=== PATIENT | female | born 1945 | race Asian ===

== ENCOUNTER 2018-11-14 21:46 | Emergency (ER) | payer MEDICARE, OTHER ==
--- NOTE | 2018-11-14 23:03 | ER Document Report ---
HPI - HPI Patient complains to provider of: Elevated blood pressure reading Time Seen by Provider: 11/14/18 22:53 Onset: This evening Onset/Duration: Sudden Pain Level: Denies Context: Patient states that she checks her blood pressure at least twice a day. Patient's blood pressure was normal this morning and was elevated this evening. Patient states that she continue to recheck it after noticing that it was elevated in the 160s over 90 range and her blood pressure got as high as 190/99. Patient states that she took herself off of her amlodipine 2 weeks ago as her blood pressure has been running low. Patient has not spoke to her doctor about stopping her medication. Patient denies any headache chest pain abdominal pain, back pain vision problems or urinary symptoms. Patient states she did get anxious when she noticed that her blood pressure was elevated this evening. Associated Symptoms: None Exacerbated by: Denies Relieved by: Denies Similar symptoms previously: Yes Recently seen / treated by doctor: No - ROS ROS below otherwise negative: Yes Systems Reviewed and Negative: Yes All other systems reviewed and negative - CONSTITUTIONAL Constitutional: DENIES: Fever - NEURO Neurology: DENIES: Headache, Weakness, Vision blurred, Dizzinesss / Vertigo - CARDIOVASCULAR Cardiovascular: DENIES: Chest pain - RESPIRATORY Respiratory: DENIES: Trouble Breathing, Coughing - GASTROINTESTINAL Gastrointestinal: DENIES: Abdominal Pain, Nausea - MUSCULOSKELETAL Musculoskeletal: DENIES: Back Pain - DERM Skin Color: Normal Skin Problems: None Past Medical History - General Information source: Patient - Social History Smoking Status: Never Smoker Frequency of alcohol use: None Drug Abuse: None Occupation: None Family History: CVA, Hyperlipidemia, Hypertension - Past Medical History Cardiac Medical History: Reports: Hx Hypercholesterolemia, Hx Hypertension Neurological Medical History: Reports: Hx Cerebrovascular Accident - x2, TIA GI Medical History: Reports: Hx Gastroesophageal Reflux Disease Past Surgical History: Reports: Hx Pacemaker - Immunizations Immunizations up to date: Yes Hx Diphtheria, Pertussis, Tetanus Vaccination: Yes Hx Pneumococcal Vaccination: 04/09/11 Vertical Provider Document - CONSTITUTIONAL Agree With Documented VS: Yes Exam Limitations: No Limitations General Appearance: WD/WN, No Apparent Distress - INFECTION CONTROL TRAVEL OUTSIDE OF THE [place] IN LAST 30 DAYS: No - HEENT HEENT: Atraumatic, Normocephalic - NECK Neck: Normal Inspection, Supple - RESPIRATORY Respiratory: Breath Sounds Normal, No Respiratory Distress - CARDIOVASCULAR Cardiovascular: Regular Rate, Regular Rhythm - BACK Back: Normal Inspection - MUSCULOSKELETAL/EXTREMETIES Musculoskeletal/Extremeties: ISSAC ELMORE - NEURO Level of Consciousness: Awake, Alert, Appropriate Motor/Sensory: No Motor Deficit - DERM Integumentary: Warm, Dry, No Rash Course - Re-evaluation Re-evalutation: 11/14/18 23:02 Patient had an elevated blood pressure reading at home which made her anxious. Patient took herself off of her blood pressure medication 2 weeks ago without her doctor's knowledge. Patient denies any headache chest pain back pain abdominal pain or urinary symptoms. Patient with normal blood pressure reading while here in the emergency department. Patient encouraged to continue to monitor her blood pressure and follow-up with her primary doctor tomorrow for recheck. - Vital Signs Vital signs: Temp Pulse Resp BP Pulse Ox 97.8 F 63 18 142/75 H 96 11/14/18 21:56 11/14/18 21:56 11/14/18 21:56 11/14/18 21:56 11/14/18 21:56 Discharge - Discharge Clinical Impression: Concern about blood pressure Hypertension Qualifiers: Hypertension type: unspecified Qualified Code(s): I10 - Essential (primary) hypertension Condition: Stable Disposition: HOME, SELF-CARE Additional Instructions: Return immediately for any new or worsening symptoms Followup with your primary care provider, call tomorrow to make a followup appointment Continue to monitor and keep a log of your blood pressure readings. Discussed with your doctor whether or not you should be on your blood pressure medication as they are not aware that you stop taking your medication. Referrals: ELMIRA DESHPANDE MD [Primary Care Provider] - Follow up tomorrow
[2018-11-14 23:17] VITALS: BP 131/75
== END 2018-11-14 23:11 | disposition home or self-care (01) ==
LOC: ER 21:46
DX: I10 Essential (primary) hypertension (principal); F41.9 Anxiety disorder, unspecified; Z79.899 Other long term (current) drug therapy
CPT/HCPCS: 99283

== ENCOUNTER 2020-02-17 17:35 | Emergency (ER) | payer MEDICARE, OTHER ==
--- NOTE | 2020-02-17 17:49 | ER Document Report ---
ED Medical Screen (RME) - General Chief Complaint: S/S of Possible Stroke Stated Complaint: POSSIBLE STROKE Time Seen by Provider: 02/17/20 17:39 Primary Care Provider: ELMIRA DESHPANDE MD [Primary Care Provider] - Follow up as needed TRAVEL OUTSIDE OF THE [place] IN LAST 30 DAYS: No - HPI Notes: 02/17/20 17:44 74-year-old female with a history of 3 CVAs presents to the emergency room with left hand numbness and weakness that started 2 days ago. She states this is typically what happens as a precursor to her strokes. Patient is anticoagulated on Plavix and did have a pacemaker placed last year. Denies any chest pain shortness of breath, fevers or chills. Patient states she her left hand felt "hard" and she kept smacking her hand against the chair because she did not have any sensation. Denies any falls, hitting her head and change in level consciousness. Patient follows with a PCP Dr. Deshpande in [place] as well as Dr. Benites, neurologist at [facility]. I have greeted and performed a rapid initial assessment of this patient. A comprehensive ED assessment and evaluation of the patient, analysis of test results and completion of the medical decision making process will be conducted by additional ED providers. PHYSICAL EXAMINATION: GENERAL: Well-appearing, well-nourished and in no acute distress. HEAD: Atraumatic, normocephalic. EYES: Pupils equal round extraocular movements intact, conjunctiva are normal. NECK: Normal range of motion CV: s1, s2 regular LUNGS: No respiratory distress Musculoskeletal: Normal range of motion NEUROLOGICAL: Normal speech, normal gait. PERRLA, EOMI. Full motor and sensory function throughout. Weaving Supervisor + 2 equal bilaterally in BUE. Tongue midline. No pronator drift. No ataxia. Neck with APROM. Raises eyebrows, right higher than left eyebrow. strength is 5 out of 5 in bilateral upper. Speaks in full sentences. No weakness on one side. SKIN: Warm, Dry, normal turgor, no rashes or lesions noted. - Related Data Allergies/Adverse Reactions: No Known Allergies Allergy (Verified 02/03/13 22:48) Past Medical History - Past Medical History Cardiac Medical History: Reports: Hx Hypercholesterolemia, Hx Hypertension Neurological Medical History: Reports: Hx Cerebrovascular Accident - x2, TIA GI Medical History: Reports: Hx Gastroesophageal Reflux Disease Past Surgical History: Reports: Hx Pacemaker - Immunizations Immunizations up to date: Yes Hx Diphtheria, Pertussis, Tetanus Vaccination: Yes Doctor's Discharge - Discharge Referrals: ELMIRA DESHPANDE MD [Primary Care Provider] - Follow up as needed
--- NOTE | 2020-02-17 18:21 | RADIOLOGY REPORT (SQ) ---
EXAM DESCRIPTION: CT HEAD WITHOUT IMAGES COMPLETED DATE/TIME: 02/17/2020 4:57 pm REASON FOR STUDY: L arm numbness, hx of CVA COMPARISON: 09/09/2014 TECHNIQUE: Axial images acquired through the brain without intravenous contrast. Images reviewed wi th bone, brain and subdural windows. Additional sagittal and coronal reconstructions were generated. Images stored on PACS. All CT scanners at this facility use dose modulation, iterative reconstruction, and/or weight based d osing when appropriate to reduce radiation dose to as low as reasonably achievable (ALARA). [facility]: Dose Right [facility]: CareDose [facility]: Dose Right [facility]: Teradose 4D [facility]: [employer] RADIATION DOSE: CT Rad equipment meets quality standard of care and radiation dose reduction techniq ues were employed. CTDIvol: 53.2 mGy. DLP: 964 mGy-cm. mGy. LIMITATIONS: None. FINDINGS: VENTRICLES: Normal size and contour. CEREBRUM: No masses. No hemorrhage. No midline shift. No evidence for acute infarction. There is n ormal calzada-white matter differentiation. Moderate periventricular and deep white matter hypodense at tenuation consistent with moderate chronic small vessel ischemic change. There is intracranial ather osclerosis. CEREBELLUM: No masses. No hemorrhage. No alteration of density. No evidence for acute infarction. EXTRAAXIAL SPACES: No fluid collections. No masses. ORBITS AND GLOBE: No intra- or extraconal masses. Normal contour of globe without masses. CALVARIUM: No fracture. PARANASAL SINUSES: No fluid or mucosal thickening. SOFT TISSUES: No mass or hematoma. OTHER: No other significant finding. IMPRESSION: No acute intracranial hemorrhage, mass, or evidence of acute territorial infarct. Moder ate chronic small vessel ischemic change. EVIDENCE OF ACUTE STROKE: NO. COMMENT: Quality ID # [id number]: Final reports with documentation of one or more dose reduction techniques (e.g., Automated exposure control, adjustment of the mA and/or kV according to patient size, use of iterative reconstruction technique) TECHNICAL DOCUMENTATION: JOB ID: [id number] [employer]- All Rights Reserved Reading location - IP/workstation name: [email or web address]
--- NOTE | 2020-02-17 18:23 | RADIOLOGY REPORT (SQ) ---
EXAM DESCRIPTION: CHEST SINGLE VIEW IMAGES COMPLETED DATE/TIME: 02/17/2020 4:58 pm REASON FOR STUDY: L arm numbness, hx of CVA COMPARISON: None. EXAM PARAMETERS: NUMBER OF VIEWS: One view. TECHNIQUE: Single frontal radiographic view of the chest acquired. RADIATION DOSE: NA LIMITATIONS: None. FINDINGS: LUNGS AND PLEURA: No opacities, masses or pneumothorax. No pleural effusion. MEDIASTINUM AND HILAR STRUCTURES: No masses. Contour normal. HEART AND VASCULAR STRUCTURES: Heart normal in size. Normal vasculature. BONES: No acute findings. HARDWARE: None in the chest. OTHER: No other significant finding. IMPRESSION: NO ACUTE RADIOGRAPHIC FINDING IN THE CHEST. TECHNICAL DOCUMENTATION: JOB ID: [id number] 2010 [employer]- All Rights Reserved Reading location - IP/workstation name: [email or web address]
[2020-02-17 18:41] LABS: ABSOLUTE EOSINOPHILS # (AUTO) 0.1 10^3/uL (0.0-0.6); ABSOLUTE LYMPHOCYTES (AUTO) 2.2 10^3/uL (0.5-4.7); ABSOLUTE MONOCYTES (AUTO) 0.6 10^3/uL (0.1-1.4); ABSOLUTE NEUT (AUTO) 2.3 10^3/uL (1.7-8.2); BASOPHILS % (AUTO) 0.7 % (0-2); EOSINOPHILS % (AUTO) 1.1 % (0-6); HEMATOCRIT 41.9 % (36.0-47.0); HEMOGLOBIN 14.4 g/dL (12.0-15.5); MEAN CORPUSCULAR HEMOGLOBIN 31.1 pg (27.0-33.4); MEAN CORPUSCULAR HGB CONC 34.4 g/dL (32.0-36.0); MEAN CORPUSCULAR VOLUME 90 fl (80-97); MONOCYTES % (AUTO) 10.7 % (3-13); PLATELET COUNT 169 10^3/uL (150-450); RED BLOOD COUNT 4.64 10^6/uL (3.72-5.28); RED CELL DISTRIBUTION WIDTH 12.9 % (11.5-14.0); SEGMENTED NEUTROPHILS % (AUTO) 44.5 % (42-78); TOTAL CELLS COUNTED % (AUTO) 100 %; WHITE BLOOD COUNT 5.2 10^3/uL (4.0-10.5)
[2020-02-17 18:50] LABS: INTERNATIONAL RATION (INR) 0.98; PROTHROMBIN TIME 13.2 SEC (11.4-15.4)
[2020-02-17 18:57] LABS: ALBUMIN 4.9 g/dL (3.5-5.0); ALKALINE PHOSPHATASE 62 U/L (38-126); ANION GAP 11 (5-19); ASPARTATE AMINO TRANSFERASE 65 U/L (14-36); BILIRUBIN,TOTAL 0.8 mg/dL (0.2-1.3); BLOOD UREA NITROGEN 14 mg/dL (7-20); CALCIUM 9.8 mg/dL (8.4-10.2); CARBON DIOXIDE 27 mmol/L (22-30); CHLORIDE 101 mmol/L (98-107); GLUCOSE 116 mg/dL (75-110); POTASSIUM 3.7 mmol/L (3.6-5.0); TOTAL PROTEIN 8.1 g/dL (6.3-8.2)
--- NOTE | 2020-02-17 20:24 | ER Document Report ---
ED General - General Chief Complaint: S/S of Possible Stroke Stated Complaint: POSSIBLE STROKE Time Seen by Provider: 02/17/20 17:39 Primary Care Provider: ELMIRA DESHPANDE MD [Primary Care Provider] - Follow up as needed TRAVEL OUTSIDE OF THE [place] IN LAST 30 DAYS: No - HPI Notes: Patient is a 74-year-old female with a history of multiple CVAs, affecting her left side with no residual deficits, who presents to the emergency department for evaluation of numbness and tingling in her left hand. Initially she said it had only been lasting a few days, but on further questioning she states this actually been going on for about a month. It started hurting over the last 2 days. She primarily complained of pain in her index finger. She states tapping her finger against something made it better. She describes it as an ache, really cannot give a numerical value to her discomfort. She denies any difficulty seeing, speaking, swallowing. Otherwise she is moving her arms and legs without difficulty. She has been taking her medications as prescribed. She follows with a neurologist, is actually due to see him for her annual appointment shortly. - Related Data Allergies/Adverse Reactions: No Known Allergies Allergy (Verified 02/17/20 19:41) Home Medications: plavix, diltiazem, atorvastatin Past Medical History - General Information source: Patient - Social History Smoking Status: Never Smoker Frequency of alcohol use: None Drug Abuse: None Family History: CVA, Hyperlipidemia, Hypertension - Past Medical History Cardiac Medical History: Reports: Hx Hypercholesterolemia, Other - Pacemaker Neurological Medical History: Reports: Hx Cerebrovascular Accident - x2, TIA GI Medical History: Reports: Hx Gastroesophageal Reflux Disease Past Surgical History: Reports: Hx Orthopedic Surgery - Left shoulder, Hx Pacemaker - Immunizations Immunizations up to date: Yes Hx Diphtheria, Pertussis, Tetanus Vaccination: Yes Hx Pneumococcal Vaccination: 04/09/11 Review of Systems - Review of Systems Constitutional: No symptoms reported EENT: No symptoms reported Cardiovascular: No symptoms reported Respiratory: No symptoms reported Gastrointestinal: No symptoms reported Genitourinary: No symptoms reported Musculoskeletal: No symptoms reported Skin: No symptoms reported Neurological/Psychological: See HPI -: Yes All other systems reviewed and negative Physical Exam - Vital signs Vitals: Pulse Resp BP Pulse Ox 70 19 126/86 H 97 02/17/20 19:29 02/17/20 19:29 02/17/20 19:29 02/17/20 19:29 - Notes Notes: Vital signs reviewed, please refer to chart. Head is normocephalic, atraumatic. Pupils equal round, reactive to light. Neck is supple without meningismus. Heart is regular rate and rhythm. Lungs are clear to auscultation bilaterally. Abdomen is soft, nontender, normoactive bowel sounds throughout. Extremities without cyanosis, clubbing. Posterior calves are nontender. Peripheral pulses are equal. Skin is warm and dry. Patient is awake, alert, oriented x3. Cranial nerves II - XII are grossly intact without focal neurological deficits. Strength is plus 5 out of 5 bilateral upper and lower extremities. Sensation is intact to the right upper and bilateral lower extremities. Reflexes reveal mild hyperreflexia in the left upper extremity at the biceps and brachioradialis. Intact [id number], rapid alternating movements, [id number]. Examination of the left lower extremity yields diminished sensation and paresthesias associated with light touch to the index, middle, and ring fingers. There is also diminished sensation and paresthesias over the dorsum of the hand and the anterior space between the thumb and the index finger. She has mildly diminished extension strength at the wrist. Course - Re-evaluation Re-evalutation: 02/17/20 20:23 Patient presents to the emergency department for evaluation. She states that she is concerned she is having a CVA, given the numbness and tingling in her left fingers. She states that she has had strokes that affected her left upper extremity in the past. On exam she is in fact hyperreflexive, but her neurological findings otherwise are more suggestive of a lower motor neuron lesion. She has no other neurological deficits. Her work-up here is absolutely unremarkable. Even if this were a very small stroke, I do not see how management would be changed by a more acute diagnosis. She is already on Plavix. She already has follow-up with neurology. She states that she is never discussed this with her neurologist in the past. Certainly her neurologist could order EMG, MRI of the cervical spine, other work-up to evaluate for the possible etiology of this sensation. She is told that if she develops worsening she needs to return, otherwise she is discharged with close follow-up. - Vital Signs Vital signs: Temp Pulse Resp BP Pulse Ox 70 19 126/86 H 97 02/17/20 19:29 02/17/20 19:29 02/17/20 19:29 02/17/20 19:29 - Laboratory Result Diagrams: 02/17/20 18:30 02/17/20 18:30 Laboratory results interpreted by me: 02/17/20 18:30 Glucose 116 H AST 65 H ALT 103 H - Diagnostic Test Radiology reviewed: Reports reviewed Radiology results interpreted by me: 02/17/20 20:24 Chest X-Ray 02/17/20 17:39 IMPRESSION: NO ACUTE RADIOGRAPHIC FINDING IN THE CHEST. Head CT 02/17/20 17:39 IMPRESSION: No acute intracranial hemorrhage, mass, or evidence of acute territorial infarct. Moderate chronic small vessel ischemic change. EVIDENCE OF ACUTE STROKE: NO. - EKG Interpretation by Me Additional EKG results interpreted by me: 02/17/20 20:25 Atrial paced at 70 bpm. Normal axis and intervals. No acute ST changes concerning for ischemia or infarction. No old studies immediately available for comparison. Discharge - Discharge Clinical Impression: Paresthesia and pain of left extremity Condition: Stable Disposition: HOME, SELF-CARE Instructions: Numbness or Paresthesia ([facility]) Additional Instructions: There are multiple possible causes for the numbness and tingling that you are experiencing today. Your work-up here today shows no signs of an acute stroke. Please discuss this numbness with your neurologist in follow-up. Return to the emergency department with worsening or new concerning symptoms of any sort. Referrals: ELMIRA DESHPANDE MD [Primary Care Provider] - Follow up as needed
[2020-02-17 20:43] LABS: APPEARANCE,URINE CLEAR; BILIRUBIN,URINE NEGATIVE (NEGATIVE); COLOR,URINE YELLOW; GLUCOSE, URINE NEGATIVE (NEGATIVE); KETONES,URINE NEGATIVE (NEGATIVE); LEUKOCYTE ESTERASE,URINE NEGATIVE (NEGATIVE); NITRITE,URINE NEGATIVE (NEGATIVE); PROTEIN,URINE NEGATIVE (NEGATIVE); URINE SPECIFIC GRAVITY 1.008; UROBILINOGEN,URINE NEGATIVE mg/dL (<2.0)
[2020-02-17 21:44] VITALS: BP 113/70
--- NOTE | 2020-02-18 17:45 | EKG REPORT ---
SEVERITY:- ABNORMAL ECG - ATRIAL-PACED RHYTHM : Confirmed by: Patrick Llanes 18-Feb-2020 17:45:06
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
== END 2020-02-17 21:45 | disposition home or self-care (01) ==
LOC: ER 17:35
DX: R20.2 Paresthesia of skin (principal); E78.00 Pure hypercholesterolemia, unspecified; Z86.73 Personal history of transient ischemic attack (TIA), and cerebral infarction without residual deficits; Z95.0 Presence of cardiac pacemaker
CPT/HCPCS: 36415; 70450; 71045; 80053; 81001; 84484; 85025; 85610; 93005; 93010; 99285